=== PATIENT | female | born 1970 | race Caucasian/White ===

== ENCOUNTER 2018-11-13 00:02 | Emergency (ER) | payer MEDICARE, BC ==
[~2018-11-13] VITALS: Ht 160 cm; Wt 62.6 kg
[~2018-11-13 00:02] MED LIST: IBUP-1542 PO
[2018-11-13 00:11] VITALS: Ht 160 cm; Wt 62.6 kg
--- NOTE | 2018-11-13 00:27 | ERD ---
ER Documentation Chief Complaint Chief Complaint BIB [id number] c/o chest pain & SOB x 1 hour ago, pt states she is feeling weak HPI The patient is a 48-year-old female, presenting to the ER because of left-sided chest discomfort about 2 hours ago, denies similar symptoms previously, denies chest pain with vomiting/radiation/exertion/diaphoresis, dyspnea, abdominal pain, vomiting, dysuria, diarrhea. She does not smoke nor drink. She complains of feeling weak. Past medical history: Depression, chronic neck pain Past surgical history: None ROS All systems reviewed and are negative except as per history of present illness. Medications Home Meds Active Scripts Ibuprofen* (Motrin*) 600 Mg Tab, 600 MG PO Q6H PRN for PAIN AND OR ELEVATED TEMP, #20 TAB Prov:TELMA MENDEZ MD 11/13/18 Allergies Allergies: Coded Allergies: Penicillins (Verified Allergy, Unknown, 11/13/18) Physical Exam Vitals Vital Signs Date Temp Pulse Resp B/P (MAP) Pulse Ox O2 O2 Flow FiO2 Time Delivery Rate 11/13/18 97.6 73 17 118/73 97 Room Air 03:21 (88) 11/13/18 Nasal 2 02:18 Cannula 11/13/18 98.2 74 17 129/75 100 00:11 (93) Physical Exam Const: No acute distress. Head: Atraumatic. Eyes: Normal Conjunctiva. ENT: Normal External Ears, Nose and Mouth. Neck: Full range of motion. No meningismus. Resp: Clear to auscultation bilaterally. Cardio: Regular rate and rhythm. Abd: Soft, non distended, normal bowel sounds, non tender. Skin: No petechiae or rashes. Back: No midline or flank tenderness. Ext: No cyanosis, or edema. Neur: Awake and alert. No focal deficit Psych: Normal Mood and Affect. Result Diagram: 11/13/18 0050 11/13/18 005 Results 24 hrs Laboratory Tests Test 11/13/18 00:50 11/13/18 01:14 11/13/18 04:10 11/13/18 05:21 White Blood Count 7.3 10^3/ul Red Blood Count 4.70 10^6/ul Hemoglobin 14.0 g/dl Hematocrit 42.3 % Mean Corpuscular 90.0 fl Volume Mean Corpuscular 29.8 pg Hemoglobin Mean Corpuscular 33.1 g/dl Hemoglobin Concen t Red Cell 13.0 % Distribution Width Platelet Count 324 10^3/UL Mean Platelet 9.4 fl Volume Immature 0.400 % Granulocytes % Neutrophils % 66.7 % Lymphocytes % 23.7 % Monocytes % 6.9 % Eosinophils % 1.7 % Basophils % 0.6 % Nucleated Red 0.0 /100WBC Blood Cells % Immature 0.030 10^3/ul Granulocytes # Neutrophils # 4.9 10^3/ul Lymphocytes # 1.7 10^3/ul Monocytes # 0.5 10^3/ul Eosinophils # 0.1 10^3/ul Basophils # 0.0 10^3/ul Nucleated Red 0.0 10^3/ul Blood Cells # Sodium Level 138 mmol/L Potassium Level 3.5 mmol/L Chloride Level 104 mmol/L Carbon Dioxide 29 mmol/L Level Anion Gap 5 Blood Urea 6 mg/dl Nitrogen Creatinine 0.76 mg/dl Est Glomerular > 60 mL/min Filtrat Rate mL/min Glucose Level 106 mg/dl Calcium Level 11.6 mg/dl Troponin I < 0.012 ng/ml < 0.012 ng/ml < 0.012 ng/ml Urine Opiates POSITIVE Screen Urine NEGATIVE Barbiturates Urine NEGATIVE Amphetamines Screen Urine NEGATIVE Benzodiazepines Screen Urine Cocaine NEGATIVE Screen Urine NEGATIVE Cannabinoids POC Beta HCG, NEGATIVE Qualitative Creatine Kinase 45 IU/L Creatine Kinase 0.8 Index Creatinine Kinase 0.34 ng/ml MB (Mass) Current Medications Medications Dose Sig/Ursula Start Time Status Last (Trade) Ordered Route PRN Stop Time Admin Dose Reason Admin Ketorolac 30 mg ONCE STAT 11/13/18 DC 11/13/18 Tromethamine IV 01:13 01:21 (Toradol) 11/13/18 01:14 Procedures/[place] [id number] Radiology Main Line: [phone] DIAGNOSTIC IMAGING REPORT Patient: NAINA GUY : 1970 Age: 48 Sex: F MR #: [id number] DOS: 11/13/18 0032 Ordering MD: TELMA MENDEZ MD Location: E/R Room/Bed: PROCEDURE: XR Chest. CLINICAL INDICATION: Chest pain TECHNIQUE: Single frontal view of the chest was obtained COMPARISON: None FINDINGS: The heart and mediastinum are within normal limits. The lungs are clear. There is no pleural effusion or pneumothorax. ECG leads project over the chest. IMPRESSION: No acute disease. RPTAT: HJES .Partha Pantoja MD, MD Date Time Electronically viewed and signed by .Partha Pantoja MD, on 11/13/2018 02:23 .S/ CC: TELMA MENDEZ MD [phone] EKG: At 12:48 AM read by emergency physician Rate/Rhythm: Normal Sinus Rhythm 78 beats/min QRS, ST, T-waves: No ST elevation, no T inversion Impression: Normal EKG EKG: At 3:58 AM read by emergency physician Rate/Rhythm: Normal Sinus Rhythm 72 beats/min QRS, ST, T-waves: No ST elevation, no T inversion Impression: Normal EKG MEDICAL MAKING DECISION: The patient is a 48-year-old female, presenting with acute chest pain, most likely acute chest wall pain, was treated with Toradol 30 mg IV for pain with good response, is stable for outpatient follow-up The differential diagnoses considered include but are not limited to acute coronary syndrome, acute myocardial infarction, pericarditis, pulmonary embolism, aortic dissection, pneumonia, pleural effusion, pneumothorax, GERD, chest wall pain. The patient presents with chest pain and I considered pulmonary embolism, aortic dissection, pneumothorax among other diagnoses. Evaluation for acute coronary syndrome was performed. The HEART score (www.mdcalc.com) was utilized for risk stratification and found to be <= 3. Repeat EKG and troponin @ 3 hours were unchanged. Based on this evaluation the patients risk of major adverse cardiac events is <1%. Shared decision making occurred with patient and the decision has been made to discharge the patient for outpatient evaluation and functional study within 72 hours. Departure Diagnosis: Primary Impression: Chest pain Condition: Good Additional Instructions: She was discharged with Motrin I discussed the findings with the patient. I advised the patient to follow-up wi th her sand carrier in about 1-2 days, sooner if needed and return if any concern. Disclaimer: Inadvertent spelling and grammatical errors are likely due to EHR/dictation software use and do not reflect on the overall quality of patient care. Also, please note that the electronic time recorded on this note does not necessarily reflect the actual time of the patient encounter. TELMA MENDEZ MD Nov 13, 2018 00:27
[2018-11-13] MEDS ORDERED: KETOROLAC 30 MG INJ IV STA (01:13)
[2018-11-13 06:14] VITALS: BP 138/76; PULSE 77; RESP 17
== END 2018-11-13 06:16 | disposition home or self-care (01) ==
LOC: E/R 00:02
DX: R07.9 Chest pain, unspecified (principal)
CPT/HCPCS: 36415; 71045; 80048; 80307; 81025; 82550; 82553; 84484; 85025; 96374; 99285; J1885; 93005